=== PATIENT | male | born 1955 | race Two or more races ===

== ENCOUNTER 2020-11-10 13:52 | Emergency (ER) | payer OTHER ==
[~2020-11-10] VITALS: Ht 160 cm; Wt 115.7 kg
[2020-11-10 15:04] VITALS: BP 160/99
--- NOTE | 2020-11-10 15:04 | NUR ---
Patient discharged to home in stable condition. Written and verbal after care instructions given. Patient verbalizes understanding of instruction.
== END 2020-11-10 15:04 | disposition home or self-care (01) ==
LOC: ER 14:13
DX: Z02.89 Encounter for other administrative examinations (principal); Z20.822 Contact with and (suspected) exposure to COVID-19; I10 Essential (primary) hypertension; E11.9 Type 2 diabetes mellitus without complications
CPT/HCPCS: 87426; 99283; C9803